=== PATIENT | female | born 1995 | race Caucasian/White ===

== ENCOUNTER 2022-08-20 13:53 | Emergency (ER) | payer MEDICAID ==
[~2022-08-20] VITALS: Ht 165.1 cm; Wt 55.0 kg
[2022-08-20 16:20] LABS: BASOPHILS % 0.3 % (0.0-2.0); HEMATOCRIT. 39.3 % (36.0-48.0); HEMOGLOBIN. 13.1 g/dL (12.0-16.0); LYMPHOCYTES % 13.4 % (20.0-50.0); MEAN CORPUSCULAR HEMOGLOBIN 30.3 pg (28.0-32.0); MEAN PLATELET VOLUME 7.6 fl (7.4-10.4); MONOCYTES % 5.5 % (2.0-8.0); NEUTROPHILS % 80.8 % (40.0-76.0); PLATELET 342 x1000/uL (130-400); RED BLOOD CELL COUNT 4.32 mill/uL (4.2-5.4); RED CELL DISTRIBUTION WIDTH 12.7 % (11.6-14.6)
[2022-08-20 16:24] LABS: CHLORIDE 102 mEq/L (98-107)
[2022-08-20 16:41] LABS: CREATINE KINASE 58 IU/L (26-192); ETHANOL BLOOD < 10 mg/dL
[2022-08-20 16:51] LABS: HCG SCREEN NEGATIVE
[2022-08-21] VITALS: BP 122/78
== END 2022-08-21 00:03 | disposition home or self-care (01) ==
LOC: ER 13:53
DX: R44.0 Auditory hallucinations (principal); F32.9 Major depressive disorder, single episode, unspecified
CPT/HCPCS: 36415; 80053; 80307; 80320; 80329; 81025; 82550; 84443; 84703; 85025; 93005; 99284; G0480